=== PATIENT | female | born 1995 | race Caucasian/White ===

== ENCOUNTER 2017-03-10 16:18 | Outpatient (RCR) | payer OTHER ==
[~2017-03-10 16:18] MED LIST: IBU-2200 MG PO
== END 2017-03-11 13:55 | disposition home or self-care (01) ==
LOC: MKS.ESL.PT 16:18
DX: Q87.2 Congenital malformation syndromes predominantly involving limbs (principal); I89.0 Lymphedema, not elsewhere classified

== ENCOUNTER 2018-03-06 11:58 | Day surgery (SDC) | payer OTHER ==
[2018-03-06] VITALS (9 sets, daily range): BP systolic 94–120; BP diastolic 57–79; PULSE 67–89; TEMP 98.3
[~2018-03-06] VITALS: Ht 180.3 cm; Wt 77.8 kg
[2018-03-06] MEDS ORDERED: ELIQUIS 5MG PO (12:42)
[2018-03-06] MEDS ORDERED: ZOFRAN 4MG T4 MG/TAB PO (12:43)
[2018-03-06] MEDS ORDERED: TYLENOL W/COD1 UDTAB PO (12:43)
[2018-03-06] MEDS ORDERED: LOVENOX 8080 MG/0.8 SQ (12:43)
--- NOTE | 2018-03-06 12:45 | NUR ---
TO RM AT 1210- CALL LIGHT IN REACH WILL CALL MOTHER FOR FOLLOW UP.
--- NOTE | 2018-03-06 13:50 | NUR ---
Pt to GI bay 6 via cart from ENDO. Pt awake and alert. Pt ambulates to recliner with stand by assistance. Warm blanket placed on abdomen. Clear liquids given. Pt denies further needs. Call light within reach.
--- NOTE | 2018-03-06 14:05 | NUR ---
Pt continues to rest. Tolerating clear fluids without difficulties. Will continue to monitor. Call light within reach.
--- NOTE | 2018-03-06 14:20 | NUR ---
Pt continues to rest. Pt reports pain but denies need for pain medicaiton. Pt also reports mild nause, but denies need for Zofran. Will continue to monitor.
--- NOTE | 2018-03-06 14:35 | NUR ---
Pt continues to rest. Denies needs. Call light within reach.
--- NOTE | 2018-03-06 15:05 | NUR ---
Pt continues to rest. Respirations even and unlabored. Call light within reach.
--- NOTE | 2018-03-06 15:35 | NUR ---
Pt continues to rest. Respirations even and unlabored. Will continue to monitor. Call light within reach.
--- NOTE | 2018-03-06 16:13 | NUR ---
Pt rating abdominal pain 5/[address] Duncan notified. Orders given. Zofran 4mg IVSP given, and [place] 5mg 1 tablet po given per orders. Will continue to monitor. Call light within reach.
--- NOTE | 2018-03-06 16:33 | NUR ---
Pt continues to rest. Denies needs. Call light within reach.
--- NOTE | 2018-03-06 16:49 | NUR ---
Pt continues to rest. Pt rates pain 3/10. Will continue to monitor. Call light within reach.
--- NOTE | 2018-03-06 17:15 | NUR ---
Patient denies having any pain or nausea. Vitals stable. Patient states she feels good and is ready to go home.
--- NOTE | 2018-03-06 17:25 | NUR ---
Dismissal instructions gone over with patient. Patient voices understanding and all questions answered.
--- NOTE | 2018-03-06 17:35 | NUR ---
Patient dismissed to mother at visitor enterance thanking staff for services.
== END 2018-03-06 17:35 | disposition home or self-care (01) ==
LOC: SDCO 11:58
DX: K80.70 Calculus of gallbladder and bile duct without cholecystitis without obstruction (principal)
CPT/HCPCS: OP; C1769; J2405; J2704; J7120; Q9967

== ENCOUNTER 2018-03-07 05:57 | Observation (INO) | payer OTHER ==
[~2018-03-07] VITALS: Ht 180.3 cm; Wt 79.5 kg
[~2018-03-07 05:57] MED LIST changes: +ELIQUIS 5MG PO; +LOVENOX 8080 MG/0.8 SQ; +TYLENOL W/COD1 UDTAB PO; +ZOFRAN 4MG T4 MG/TAB PO
[2018-03-07 06:20] LABS: BASO # 0.1 (0.0-0.2); BASO % 0.5 % (0.0-2.0); EOS # 0.3 (0.0-0.7); EOS % 2.7 % (0-4.0); GRAN # 6.2 (1.4-6.5); HEMOGLOBIN 11.4 g/dl (12.5-16.0); LYMPH # 2.3 (1.2-3.4); LYMPH % 24.4 % (20.0-51.0); MEAN CELL VOLUME 95 fl (80.0-100.0); MEAN CORPUSCULAR HEMOGLOBIN 31 pg (27.0-31.0); MEAN CORPUSCULAR HGB CONC 33 g/dl (33.0-37.0); MEAN PLATELET VOLUME 10.2 fl (7.4-10.4); MONO # 0.6 (0.1-0.6); MONO % 6.2 % (1.7-9.3); PLATELET COUNT 265 K/mm3 (130-400); RED BLOOD COUNT 3.68 M/mm3 (4.10-5.30); REDCELL DISTRIBUTION WIDTH-CV 12.3 % (11.5-14.5)
[2018-03-07 06:21] LABS: HEMATOCRIT 34.8 % (37.0-47.0)
[2018-03-07 06:26] LABS: INR 1.1 (0.8-3.0)
[2018-03-07 06:29] LABS: PARTIAL THROMBOPLASTIN TIME 36.1 SECONDS (26.0-37.0)
[2018-03-07 06:35] LABS: ALBUMIN 3.9 gm/dL (3.5-5.0); C-REACTIVE PROTEIN 4.9 mg/dL (0.0-0.9); CALCIUM 9.3 mg/dL (8.4-10.2); CREATININE, serum 0.77 mg/dL (0.52-1.25); POTASSIUM 3.7 mmol/L (3.4-5.0); TOTAL PROTEIN 7.4 gm/dL (6.4-8.2)
[2018-03-07 07:43] LABS: COLLECTION METHOD CLEAN CATCH
[2018-03-07 07:53] LABS: MUCOUS Present /lpf; PH 6 (5-8); SQUAMOUS EPITHELIAL 0-2 /hpf; URINE APPEARANCE Hazy; URINE BACTERIA Moderate /hpf; URINE BILIRUBIN Negative (NEGATIVE); URINE BLOOD Negative (NEGATIVE); URINE COLOR Amber; URINE GLUCOSE Negative (NEGATIVE); URINE KETONE Negative (NEGATIVE); URINE LEUKOCYTE ESTERASE Negative (NEGATIVE); URINE NITRATE Positive (NEGATIVE); URINE PROTEIN(semi-quant) 1+ (NEGATIVE); URINE RBC 0-2 /hpf; URINE UROBILINOGEN >=4.0 mg/dL (NEGATIVE)
[2018-03-07 08:32] VITALS: BP 122/76; PULSE 71; TEMP 98
--- NOTE | 2018-03-07 10:00 | NUR ---
Patient alert and oriented, answers questions appropriately. See assessment. C/o mild abdominal pain 04/19. No other c/o at this time.
[2018-03-07 12:04] VITALS: BP 116/70; PULSE 65; TEMP 97.9
[2018-03-07 15:35] VITALS: BP 133/84; PULSE 74; TEMP 98.5
--- NOTE | 2018-03-07 16:09 | NUR ---
Patient plans to DC home with Mother Andra Benton who will also transport patient home. Patient indicated that she uses [facility] for medications. PCP is Dr. Portillo. Patient reports that she does not use any DME, or need any homehealth services. No addtional needs identified.
[2018-03-07 19:22] VITALS: BP 135/81; PULSE 77; TEMP 98.1
[2018-03-08] VITALS (12 sets, daily range): BP systolic 120–135; BP diastolic 61–88; PULSE 65–90; TEMP 98–100.1
--- NOTE | 2018-03-08 06:04 | NUR ---
RESTING QUIETLY. NO EMESIS BUT PT WAS NAUSEATED AT BEGINNING OF SHIFT. PT INFORMED HER SURGERY MAY BE DELAYED FOR ANOTHER URGENT CASE. PT ALSO ADMIN. DILAUDID AT H.S.
--- NOTE | 2018-03-08 09:10 | NUR ---
No c/o pain. Drowsy. To surgery per bed with OR staff.
--- NOTE | 2018-03-08 13:10 | NUR ---
Received patient from PACU. Medicated with Zofran for c/o nausea. Dilaudid given for c/o incisional pain. Bandaids x 4 to abdomen CDI. VSS.
--- NOTE | 2018-03-08 18:00 | NUR ---
VSS. No c/o pain. Eating well. Afebrile.
[2018-03-09 00:21] VITALS: BP 122/70; PULSE 87; TEMP 99.3
[2018-03-09 04:56] VITALS: BP 129/75; PULSE 92; TEMP 99.4
[2018-03-09 06:16] LABS: BASO % 0.2 % (0.0-2.0); EOS % 0.2 % (0-4.0); GRAN # 10.5 (1.4-6.5); HEMOGLOBIN 10.7 g/dl (12.5-16.0); LYMPH # 1.7 (1.2-3.4); LYMPH % 12.9 % (20.0-51.0); MEAN CELL VOLUME 93 fl (80.0-100.0); MEAN CORPUSCULAR HEMOGLOBIN 31 pg (27.0-31.0); MEAN CORPUSCULAR HGB CONC 33 g/dl (33.0-37.0); MEAN PLATELET VOLUME 10.7 fl (7.4-10.4); MONO % 7.3 % (1.7-9.3); PLATELET COUNT 304 K/mm3 (130-400); RED BLOOD COUNT 3.45 M/mm3 (4.10-5.30); REDCELL DISTRIBUTION WIDTH-CV 12.5 % (11.5-14.5)
[2018-03-09 06:25] LABS: HEMATOCRIT 32.2 % (37.0-47.0)
--- NOTE | 2018-03-09 06:31 | NUR ---
RESTING QUIETLY MOST OF NIGHT. PT ADMIN. NORCO THIS MORNING FOR ABDOMINAL DISCOMFORT. NO N/V.
[2018-03-09 06:35] LABS: ALBUMIN 3.2 gm/dL (3.5-5.0); BILIRUBIN,TOTAL 0.5 mg/dL (0.0-1.0); CALCIUM 8.9 mg/dL (8.4-10.2); CREATININE, serum 0.79 mg/dL (0.52-1.25); POTASSIUM 3.5 mmol/L (3.4-5.0); TOTAL PROTEIN 6.3 gm/dL (6.4-8.2)
[2018-03-09 08:07] VITALS: BP 127/67; PULSE 89; TEMP 99.1
--- NOTE | 2018-03-09 08:32 | NUR ---
Patient alert and oriented, answers questions appropriately. See assessment. Abdomen soft, non distended. Bowel sounds hyperactive x4 quads. +Flatus. Lap sites with bandaids clean, dry and intact. C/o abdominal pain, ambulation and up to chair encouraged. No other c/o at this time.
[2018-03-09 11:35] VITALS: BP 112/64; PULSE 80; TEMP 98.4
--- NOTE | 2018-03-09 11:57 | NUR ---
First visit from the wire technician. No needs right now.
[2018-03-09 15:21] VITALS: BP 115/62; PULSE 80; TEMP 98.7
--- NOTE | 2018-03-09 17:30 | NUR ---
Discharge instructions reviewed with patient and parent, verbalized understanding. Discharged via wheelchair to auto/home with family at 1730.
== END 2018-03-09 17:30 | disposition home or self-care (01) ==
LOC: COL.ER 05:57 → JCC 06:53
PROVIDERS: Emergency Medicine; ADMIT Surgery
DX: K80.00 Calculus of gallbladder with acute cholecystitis without obstruction (principal); Z86.718 Personal history of other venous thrombosis and embolism; Q87.2 Congenital malformation syndromes predominantly involving limbs; Z79.01 Long term (current) use of anticoagulants; Z79.899 Other long term (current) drug therapy
CPT/HCPCS: G0378; J0690; J1100; J1170; J1885; J1956; J2405; J2550; J2704; J3010; J7030; J7120; Q9967